=== PATIENT | male | born 1975 | race Caucasian/White ===

== ENCOUNTER 2016-08-17 14:10 | Emergency (ER) | payer OTHER ==
[~2016-08-17] VITALS: Ht 175.3 cm; Wt 77.1 kg
--- NOTE | 2016-08-17 14:46 | PHYS DOC ---
Past History Past Medical History: No Pertinent History Past Surgical History: Other Alcohol Use: Occasionally Drug Use: None Adult General Chief Complaint Chief Complaint: ANKLE INJURY HPI HPI Patient is a 41-year-old male who presents with an ankle injury that occurred yesterday. The patient was running for exercise yesterday when he rolled his left ankle. He did fall but got up and kept running. He denies other injury. He did ice it for a while but then he had 2 do his work so he ended up bearing weight on it during the afternoon. This morning when he woke up it was more swollen and painful so he decided to get it checked out. He has had numbness of the left lateral leg and lateral foot after back surgery. He has had left foot fracture in the past. Review of Systems Review of Systems Constitutional: Denies fever or chills [] Respiratory: Denies cough or shortness of breath [] Cardiovascular: Denies chest pain Musculoskeletal: Denies injury other than left ankle Allergies Allergies Allergies Coded Allergies Type Severity Reaction Last Updated Verified No Known Drug Allergies 08/17/16 No Physical Exam Physical Exam Constitutional: Well developed, well nourished, no acute distress, non-toxic appearance. Patient came into the ED on crutches. HENT: Normocephalic, atraumatic, bilateral external ears normal, nose normal. [ ] Eyes: conjunctiva normal, no discharge. [] Neck: Normal range of motion, no stridor. [] Skin: Warm, dry, no erythema, no rash. [] Extremities: Left lower extremity: Knee nontender to palpation, no deformity, no joint effusion. Left tib-fib nontender. Left ankle has moderate swelling on the medial and lateral aspects. There is bruising below the left ankle medially. Toes are warm with capillary refill less than 2 seconds. Neurologic: Alert and oriented X 3, normal motor function, normal sensory function, no focal deficits noted. [] Current Patient Data Vital Signs Vital Signs Date Time Temp Pulse Resp B/P Pulse Ox O2 Delivery O2 Flow Rate FiO2 08/17/16 14:22 98.2 66 12 97 Room Air EKG EKG [] Radiology/Procedures Radiology/Procedures Three-view x-ray of the left ankle read by me. No acute bony injury. No acute abnormality. [] Course & Med Decision Making Course & Med Decision Making Pertinent Labs and Imaging studies reviewed. (See chart for details) 41-year-old male with a left ankle injury yesterday presents with swelling and pain. 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 I ordered an x-ray of the left ankle. There was a significant delay because we had a power outage which affected the wait for radiology studies. The patient rested comfortably and declined pain medication while waiting for his x-rays X-rays read by me, negative. The ankle was Lei wrapped. The patient already has his own crutches with him which are sized properly. Discussed RICE [] Dragon Disclaimer Dragon Disclaimer This chart was dictated in whole or in part using Voice Recognition software in a busy, high-work load, and often noisy Emergency Department environment. It may contain unintended and wholly unrecognized errors or omissions. Departure Departure: Impression: Primary Impression: Sprain of left ankle Disposition: HOME, SELF-CARE Condition: STABLE Patient Instructions: Ankle Sprain, [id number] Additional Instructions: As we discussed, Rest - use crutches, no weightbearing, until follow-up I - ice 15-20 minutes out of every hour C - compression with snug Lei wrap, not too tight E - elevation at all times as much as possible Ibuprofen every 8 hours regularly for pain and anti-inflammatory If needed for more severe pain, add hydrocodone. Not while working or driving. Will cause you to be sleepy. It is okay to take with ibuprofen. Scripts Hydrocodone Bit/Acetaminophen ([place] 5-325 Tablet)1 Each Tablet1-2 Tab PO Q4- 6HRS #20 TAB For more severe pain Okay to combine with ibuprofen This is an opiate and will cause sedation and constipation For sprained ankle Prov:YINA SMALL MD 08/17/16 Ibuprofen 800 Mg [id number] Mg PO Q8HRS #30 Every 8 hours for pain and anti-inflammatory For sprained ankle Prov:YINA SMALL MD 08/17/16 YINA SMALL MD Aug 17, 2016 14:46
[2016-08-17 15:00] VITALS: BP 116/76
[2016-08-17] MEDS ORDERED: IBUP800T PO (16:31)
[2016-08-17] MEDS ORDERED: HYDR-971 PO (16:31)
--- NOTE | 2016-08-18 09:12 | RAD ---
3 view left ankle study History: Rolled ankle yesterday while running. Pain and swelling. Findings: No acute fracture or dislocation or osteolytic process is seen. The mortise ankle joint is intact. IMPRESSION: No acute fracture.
== END 2016-08-17 16:50 | disposition home or self-care (01) ==
LOC: ER 14:10
DX: S93.402A Sprain of unspecified ligament of left ankle, initial encounter (principal); X58.XXXA Exposure to other specified factors, initial encounter; Y93.02 Activity, running; Y99.8 Other external cause status; Y92.89 Other specified places as the place of occurrence of the external cause
CPT/HCPCS: 73610; 99284